=== PATIENT | female | born 1990 | race Caucasian/White ===

== ENCOUNTER → 2018-09-14 | Outpatient (CLI) | payer MEDICAID | LOC: BMCIMAGING 08:39 | PROVIDERS: ATTEND Physician Assistant | DX: N83.292 Other ovarian cyst, left side (principal); R93.89 Abnormal findings on diagnostic imaging of other specified body structures; N85.4 Malposition of uterus | CPT/HCPCS: 85246-90 ==

== ENCOUNTER → 2018-12-20 | Outpatient (CLI) | payer MEDICAID | LOC: BMCIMAGING 13:02 ==